=== PATIENT | female | born 1945 | race Caucasian/White ===

== ENCOUNTER → 2020-01-29 | Outpatient (CLI) | payer MEDICARE, BC ==
[~2020-01-29] MED LIST: DULO30CA2 PO; LIOT25TA10 PO; MELO15TA6 PO; MULT-252 PO; VITA1CAP PO; calcium PO; vitamin c PO
== END | disposition home or self-care (01) ==
LOC: STAR 11:26
PROVIDERS: ATTEND Neurological Surgery
DX: Z01.812 Encounter for preprocedural laboratory examination (principal); Z20.828 Contact with and (suspected) exposure to other viral communicable diseases; M48.061 Spinal stenosis, lumbar region without neurogenic claudication
CPT/HCPCS: 36415; 87635